=== PATIENT | male | born 1960 | race Caucasian/White ===

== ENCOUNTER 2024-03-03 11:24 | Emergency (ER) | payer MEDICARE, SELFPAY ==
--- NOTE | 2024-03-03 11:31 | ED.GENADULT ---
HPI - General Adult General Chief complaint: General Medical Stated complaint: gout flare up Time Seen by Provider: 03/03/24 11:57 Source: patient Mode of arrival: ambulatory Limitations: no limitations History of Present Illness ED Provider: Lg Warren PA-C HPI narrative: 64-year-old male history of gout, pacemaker COPD, seizure disorder, and hypertension presents to the ED left great toe gout exacerbation. Patient states history of gout. Patient denies any calf pain, leg swelling, chest pain, shortness of breath, any recent trauma. Patient has medication for gout at home, does not recall the name, but states no relief from pain. Patient requesting oral steroid with some with the pain stronger pain medication. Patient is on a blood thinner. Patient took about a 1000 mg Motrin this morning. Related Data Previous Rx's ?Medication ?Instructions ?Recorded colchicine 0.6 mg capsule 0.6 mg PO BID 3 days #6 caps 03/03/24 oxycodone 5 mg tablet 5 mg PO TID PRN pain 3 days #9 tabs 03/03/24 prednisone 20 mg tablet 40 mg (2 x 20 mg) PO DAILY 5 days 03/03/24 #10 tabs Allergies Allergy/AdvReac Type Severity Reaction Status Date / Time prochlorperazine Allergy Unknown Unknown Verified 03/03/24 11:33 [From Compazine] Review of Systems Review of Systems: Left great toe pain Yes all other systems are reviewed and are negative [facility] Social History Social History Advance Directives: No Advance Directives Information Provided: Yes Do you have a plan to hurt others: No Plan Physical Exam ED Vital Signs: Vital Signs - 24 hr 03/03/24 11:32 03/03/24 12:00 Temperature 97.9 F Pulse Rate 89 Respiratory Rate 18 18 Blood Pressure 118/75 Pulse Oximetry 98 Oxygen Delivery Method Room Air BMI result Body Mass Index 40.2 Const General: cooperative, healthy appearing, comfortable, no acute distress, well developed, alert, awake and Physically active Orientation/consciousness: patient oriented x3 HENMT Head: Yes normal to inspection, Yes No palpable skull fracture present, Yes normocephalic, Yes atraumatic and No abrasion Eyes General: appearance normal, both eyes and all related structures Neck Neck: Yes normal visual inspection, Yes full ROM, Yes no lymphadenopathy, Yes no meningeal signs, Yes trachea midline, Yes supple, No anterior neck swelling and No tender Chest Chest palpation & inspection: normal inspection of the chest and normal palpation of entire chest wall Resp Effort & Inspection: normal respiratory effort and able to speak in complete sentences Auscultation: clear to auscultation bilaterally Cardio Jugular venous distension: no JVD Heart sounds: S1 normal heart sound present and S2 normal heart sound present GI Inspection: Yes normal to inspection Palpation (GI): Soft to palpation, not firm, nontender, no guarding and not rigid General: No CVA tenderness and Yes no CVA tenderness Back/Spine/Pelvis Back: no CVA tenderness, No CVA tenderness and No back tenderness Skin General skin exam: no rashes or lesions noted, elasticity normal and turgor normal Neuro General: patient oriented x3, gait normal, tone normal, moves all extremities, Normal light touch and pain sensation, no meningeal signs, no focal motor deficits, CN's II-XI intact bilaterally and normal sensation to monofilament Extrem General: Yes normal to inspection, Yes full ROM and Yes capillary refill normal Ankle/foot/toe images: 1. Positive for tenderness on palpation. Slight erythema. Negative for any open wounds or ulcers. Negative for stiffness. Rest of extremity normal. Negative for leg swelling or calf pain. Negative for red streaks to indicate lymphangitis. Negative for bluish black discoloration to indicate arterial occlusion. Negative for bluish black discoloration to indicate fracture, or compartment syndrome. Motor/neuro/vascular exam intact Psych Appearance: grossly normal, well kempt and not disheveled Course Course Course Narrative: RME performed by Melly Apple PA-C. Patient is a 64 year old assigned male at presenting to the emergency department with a gout flare. Patient states he is having a gout flare in his left great toe and wants a shot of steroids. Detailed physical exam and review of systems are deferred to the electronic engineering technician. Patient placed back in the waiting room pending room availability. Medications Administered Discontinued Medications Generic Name Dose Route Start Last Admin Trade Name Rylan PRN Reason Stop Dose Admin Morphine Sulfate 4 mg 03/03/24 12:36 03/03/24 12:47 Morphine Sulfate 4 Mg/Ml Cartridge IM 03/03/24 12:37 4 mg ONCE ONE Administration Protocol Prednisone 60 mg 03/03/24 12:36 03/03/24 12:46 Prednisone 20 Mg Tablet PO 03/03/24 12:37 60 mg ONCE ONE Administration Medical Decision Making Medical Decision Making MDM Narrative: 64 yold female presents to ED for gout exacerbation. Patient denies any recent trauma. Due to patient being on blood thinner and taking 1000 mg of Motrin patient will not be given any since. Patient given morphine IM and prednisone steroid. Patient states feels relief. Not suspecting cellulitis, osteomyelitis, DVT, arterial occlusion, or compartment syndrome. 1:36pm: Patient is only on allopurinol as of 02/10/24. Patient will be discharged with Colcichine, oxycodone, and steroids. Can not discharge patient on NSAIDs due to being blood thinner. Patient explained worrisome signs informed to return to the ED immeidatle.. Differential Diagnosis Differential Diagnoses: The differential diagnosis associated with the presentation includes (Gout exacerbation, arthritis) Admission/Observation Consideration of admission/observation: Escalation of care including admission/observation considered Independent Historian Clinical information obtained from an independent historian. History obtained from or confirmed by: Other (patient) External Record Review External record reviewed: Other (prior visits. [facility]) Discharge Plan Discharge Clinical Impression: Gout attack Patient Disposition: Home, Self-Care Instructions: Low Purine Diet (ED), Gout (ED) Additional Instructions: Recommend follow-up with the primary care provider. Return to the ED immediately for worsening swelling, redness, bluish black discoloration, red streaks, calf pain, leg swelling, fever, chills, chest pain, shortness of breath, stiffness, or any other concerning symptoms. Prescriptions: New colchicine 0.6 mg capsule 0.6 mg PO BID 3 Days Qty: 6 0RF prednisone 20 mg tablet 40 mg PO DAILY 5 Days Qty: 10 0RF oxycodone 5 mg tablet 5 mg PO TID PRN (Reason: pain) 3 Days Qty: 9 0RF Rx Instructions: Partial Fill upon patient request. Interventions: ED Discharge Assessment Last Done: 03/03/24 14:10 Discharge Date/Time: 03/03/24 14:15 Print Language: [place]se
[2024-03-03 11:32] VITALS: BP 118/75; PULSE 89; RESP 18; TEMP 36.6; O2SAT 98; BMI 40.2
[2024-03-03 12:00] VITALS: RESP 18
[2024-03-03] MEDS: predniSONE 20 MG TABLET 60 MG PO (12:46)
[2024-03-03] MEDS: Morphine Sulfate 4 MG/ML CARTRIDGE IM (12:47)
[2024-03-03 14:10] VITALS: BP 111/61; PULSE 61; RESP 18; TEMP 36.4; O2SAT 95
== END 2024-03-03 14:15 | disposition home or self-care (01) ==
PROVIDERS: Emergency Provider Emergency Medicine
DX: M10.072 Idiopathic gout, left ankle and foot (principal); Z79.899 Other long term (current) drug therapy
CPT/HCPCS: 96372; 99283; 99284; J2270

== ENCOUNTER 2024-04-05 09:41 | Outpatient (REF) | payer MEDICARE, SELFPAY ==
[2024-04-05 10:12] LABS: MANUAL DIFF FLAG NO
[2024-04-05 10:39] LABS: Basophils Percent Auto 0.6 % (0-2); Eosinophils Absolute Auto 0.2 X10*3/uL (0.0-0.4); Eosinophils Percent Auto 3.3 % (0-4); Hematocrit 50.8 % (42.0-52.0); Hemoglobin 17.1 g/dl (14.0-18.0); Imm Gran Abs Auto 0.05 X10*3/uL (0.00-0.03); Imm Gran Pct Auto 0.7 % (0.0-0.4); Lymphocytes Absolute Auto 2.3 X10*3/uL (1.2-4.9); Lymphocytes Percent Auto 34.5 % (20-40); Mean Corpuscular HGB Conc 33.7 g/dl (31.0-36.0); Mean Corpuscular Hemoglobin 32.2 pg (27.0-33.0); Mean Corpuscular Volume 95.7 fL (80.0-98.0); Mean Platelet Volume 10.5 fL (9.4-12.4); Monocytes Absolute Auto 0.8 X10*3/uL (0.1-1.2); Monocytes Percent Auto 11.5 % (2-11); Neutrophils Absolute Auto 3.3 x10*3/uL (2.0-8.3); Neutrophils Percent Auto 49.4 % (45-73); Platelet Count 242 X10*3/uL (160-400); Red Blood Count 5.31 X10*6/uL (4.60-5.80); White Blood Count 6.7 X10*3/uL (4.8-10.8)
[2024-04-05 10:47] LABS: INTERNATIONAL NORM RATIO 3.4 (0.9-1.1); Prothrombin Time 41.4 SEC (11.1-13.3)
[2024-04-05 11:14] LABS: Estimated Average Glucose 143 mg/dL; Hemoglobin A1c % 6.6 % (<6.0)
[2024-04-05 12:10] LABS: Alanine Aminotransferase 45 U/L (0-40); Albumin Level 4.1 g/dL (3.5-5.0); Alkaline Phosphatase 75 U/L (39-117); Anion Gap 14 (12-20); Aspartate Amino Transferase 30 U/L (5-37); Bilirubin Total 0.8 mg/dL (0.0-1.0); Blood Urea Nitrogen 20 mg/dL (9-16); Calcium 9.8 mg/dL (8.4-10.2); Carbon Dioxide 29 mmol/L (22-29); Chloride 101 mmol/L (96-108); Cholesterol 193 mg/dL (<200); Estimated Glomerular Filt Rate > 60; Glucose Random 101 mg/dL (60-115); HDL Cholesterol 46 mg/dL (>40); LDL Cholesterol Calculated 103 mg/dL (<100); Potassium 4.1 mmol/L (3.3-5.1); Sodium 140 mmol/L (135-145); Total Protein 7.2 g/dL (6.5-8.0); Triglycerides 223 mg/dL (<150)
[2024-04-05 12:25] LABS: Prostate Specific Antigen Scr 0.65 ng/mL (<0.05-4.0)
[2024-04-05 12:26] LABS: Thyroid Stimulating Hormone 2.33 uIU/mL (0.32-4.0)
== END 2024-04-05 09:42 | disposition home or self-care (01) ==
LOC: HO.LAB 09:41
PROVIDERS: PCP Internal Medicine; Visit Provider Internal Medicine
DX: E66.01 Morbid (severe) obesity due to excess calories (principal); E78.00 Pure hypercholesterolemia, unspecified; F20.0 Paranoid schizophrenia; F31.9 Bipolar disorder, unspecified; G47.33 Obstructive sleep apnea (adult) (pediatric); I10 Essential (primary) hypertension; I48.91 Unspecified atrial fibrillation; J45.909 Unspecified asthma, uncomplicated; M10.9 Gout, unspecified; Z79.01 Long term (current) use of anticoagulants; Z95.0 Presence of cardiac pacemaker; Z12.5 Encounter for screening for malignant neoplasm of prostate; Z13.1 Encounter for screening for diabetes mellitus
CPT/HCPCS: 36415; 80053; 80061; 83036; 84153; 84443; 84550; 85025; 85610

== ENCOUNTER 2024-04-13 11:06 | Outpatient (REF) | payer MEDICARE, SELFPAY ==
[2024-04-13 11:33] LABS: MANUAL DIFF FLAG NO
[2024-04-13 11:57] LABS: Basophils Percent Auto 0.6 % (0-2); Eosinophils Absolute Auto 0.3 X10*3/uL (0.0-0.4); Eosinophils Percent Auto 4.8 % (0-4); Hematocrit 48.4 % (42.0-52.0); Hemoglobin 16.3 g/dl (14.0-18.0); Imm Gran Abs Auto 0.02 X10*3/uL (0.00-0.03); Imm Gran Pct Auto 0.4 % (0.0-0.4); Lymphocytes Absolute Auto 1.3 X10*3/uL (1.2-4.9); Lymphocytes Percent Auto 23.6 % (20-40); Mean Corpuscular HGB Conc 33.7 g/dl (31.0-36.0); Mean Corpuscular Hemoglobin 32.7 pg (27.0-33.0); Mean Platelet Volume 11.1 fL (9.4-12.4); Monocytes Percent Auto 18.4 % (2-11); Neutrophils Absolute Auto 2.8 x10*3/uL (2.0-8.3); Neutrophils Percent Auto 52.2 % (45-73); Platelet Count 187 X10*3/uL (160-400); Red Blood Count 4.99 X10*6/uL (4.60-5.80); Red Cell Distribution Width 14.1 % (11.0-16.0); White Blood Count 5.4 X10*3/uL (4.8-10.8)
[2024-04-13 12:03] LABS: Estimated Average Glucose 143 mg/dL; Hemoglobin A1c % 6.6 % (<6.0)
[2024-04-13 12:37] LABS: Creatinine Urine 86.93 mg/dL; Microalbum/Creatinine Ratio Ur 17.2 ug/mg cr (<30)
[2024-04-13 12:39] LABS: Alanine Aminotransferase 32 U/L (0-40); Albumin Level 4.1 g/dL (3.5-5.0); Alkaline Phosphatase 63 U/L (39-117); Anion Gap 11 (12-20); Aspartate Amino Transferase 28 U/L (5-37); Blood Urea Nitrogen 20 mg/dL (9-16); Calcium 9.3 mg/dL (8.4-10.2); Carbon Dioxide 24 mmol/L (22-29); Chloride 105 mmol/L (96-108); Cholesterol 167 mg/dL (<200); Estimated Glomerular Filt Rate > 60; Glucose Random 119 mg/dL (60-115); HDL Cholesterol 36 mg/dL (>40); LDL Cholesterol Calculated 104 mg/dL (<100); Potassium 4.3 mmol/L (3.3-5.1); Sodium 136 mmol/L (135-145); Total Protein 7.2 g/dL (6.5-8.0); Triglycerides 137 mg/dL (<150)
== END 2024-04-13 11:07 | disposition home or self-care (01) ==
LOC: HO.LAB 11:06
PROVIDERS: PCP Internal Medicine; Visit Provider Internal Medicine
DX: E78.00 Pure hypercholesterolemia, unspecified (principal); E11.9 Type 2 diabetes mellitus without complications; G47.33 Obstructive sleep apnea (adult) (pediatric); M10.9 Gout, unspecified; Z79.01 Long term (current) use of anticoagulants
CPT/HCPCS: 36415; 80053; 80061; 82043; 82570; 83036; 85025

== ENCOUNTER 2025-06-01 02:41 | Emergency (ER) | payer MEDICARE, SELFPAY ==
--- NOTE | 2025-06-01 | ECG_ITS ---
Test Reason : DIZZINESS Blood Pressure : */* mmHG Vent. Rate : 60 BPM Atrial Rate : 54 BPM P-R Int : * ms QRS Dur : 132 ms QT Int : 440 ms P-R-T Axes : * 180 30 degrees QTcB Int : 440 ms Ventricular-paced rhythm Biventricular pacemaker detected Abnormal ECG No previous ECGs available Referred By: Generic ED Physician Electronically Signed By: GAL GUERRIER
--- NOTE | ~2025-06-01 | CT_ITS ---
CLINICAL HISTORY: neck trauma CT cervical spine without contrast Comparison: None provided Findings: Vertebral alignment is within normal limits. Mild multilevel disc height loss with reactive endplate change and osteophyte formation. No acute fractures or dislocations. There appears to be a chronic type 1 odontoid fracture, well corticated. No acute findings on limited view of the intracranial contents. Soft tissues of the neck are normal. Lung apices are clear. IMPRESSION: No acute fracture identified. No alignment abnormalities. Multilevel degenerative change. There appears to be a chronic well corticated type 1 odontoid fracture. This document has been electronically signed by: Ana Marin MD on 06/01/2025 06:30:54
--- NOTE | ~2025-06-01 | CT_ITS ---
CLINICAL HISTORY: close head injury CT head without contrast Comparison: None provided Findings: No intra-axial mass, midline shift, hydrocephalus, or acute hemorrhage. No significant atrophy-like change or white matter disease. The visualized paranasal sinuses and mastoid air cells are normal. The orbits are within normal limits. There is no acute fracture. IMPRESSION: 1. No acute intracranial findings. This document has been electronically signed by: Ana Marin MD on 06/01/2025 06:37:24
--- NOTE | ~2025-06-01 | XR_ITS ---
CLINICAL HISTORY: trauma 2 view left knee Comparison: None provided Findings: Bones intact. No dislocations. Medial and patellofemoral compartment osteophyte formation. No significant joint space loss. No joint effusion. No radiopaque foreign body. IMPRESSION: 1. Mild tricompartment osteoarthropathy. No acute fracture or malalignment. No joint effusion. This document has been electronically signed by: Ana Marin MD on 06/01/2025 08:14:53
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
[2025-06-01 02:48] VITALS: BP 136/71; PULSE 76; RESP 18; TEMP 36.4; O2SAT 96; BMI 39.0
--- NOTE | 2025-06-01 03:12 | ED.GENADULT ---
[facility] - General Adult General Chief complaint: Fall Stated complaint: fell in shower Time Seen by Provider: 06/01/25 03:11 Source: patient Mode of arrival: ambulatory Limitations: no limitations History of Present Illness ED Provider: Dr. Jeffries [facility] narrative: 65-year-old male history of being anticoagulated on Coumadin, gout, seizures presented hospital today for evaluation of a mechanical fall. Patient stated he slipped and fell in the shower. He injured his left knee. He is also complaining of right hip pain. Patient is complaining of head pain and neck pain. Denies any pain in his chest. Denies any pain in abdomen. Patient has been taking his Coumadin Related Data Previous Rx's ?Medication ?Instructions ?Recorded colchicine 0.6 mg capsule 0.6 mg PO BID 3 days #6 caps 03/03/24 oxycodone 5 mg tablet 5 mg PO TID PRN pain 3 days #9 tabs 03/03/24 prednisone 20 mg tablet 40 mg (2 x 20 mg) PO DAILY 5 days 03/03/24 #10 tabs oxycodone 5 mg tablet 5 mg PO Q4H PRN pain #14 tabs 06/01/25 Allergies Allergy/AdvReac Type Severity Reaction Status Date / Time prochlorperazine (From Allergy Unknown Unknown Verified 06/01/25 02:49 Compazine) Review of Systems Review of Systems: Pertinent review of systems as mentioned in HPI. All other system otherwise negative. [facility] Past Medical History [facility] Narrative: Medical history as mentioned in HPI Social History Social History Smoked in Last 30 Days: No Use of substances other than those prescribed or required for medical reasons: No Advance Directives: No Physical Exam ED Exam Exam: General: Pleasant, no distress, interacting appropriately Head: Normacephalic ENT: oral mucosa moist, neck supple, no tracheal deviation, C-spine tenderness on palpation, small abrasion on his frontal forehead Cardiovascular: regular rate, regular rhythm, no murmurs, rubbing, gallops, no chest wall tenderness Respiratory: CTAB, no wheeze, rales, rhonchi Gastrointestinal: Soft, non distended, non tender, non guarding Extremities: Patient has suprapatellar hematoma identified on exam with the abrasion, patient's right hip tenderness on exam. No sign of ecchymosis on flank Neurological: Awake and alert, no facial droop noted Skin: Warm and dry Psychiatric: Appropriate mood and thoughts Vital Signs: Vital Signs - 24 hr 06/01/25 02:48 06/01/25 04:30 06/01/25 06:00 Temperature 97.5 F 98.7 F 97.8 F Pulse Rate 76 62 61 Respiratory Rate 18 Blood Pressure 136/71 118/74 117/75 Pulse Oximetry 96 97 95 Oxygen Delivery Method Room Air Room Air Room Air BMI result Body Mass Index 39.0 Course Course Course Narrative: signed out to me he has glory wrap on L knee his xrays are negative and CT scans are negative instructed to wear glory wrap for 5 days, given cane, follow up with PCP Wednesday or Wednesday short course pain control Camila De La Fuente, DO 06/01/25 0833 Medications Administered Discontinued Medications Generic Name Dose Route Start Last Admin Trade Name Freq PRN Reason Stop Dose Admin Oxycodone HCl 5 mg 06/01/25 04:26 06/01/25 04:32 Oxycodone Hcl Immed Release 5 Mg Tablet PO 06/01/25 04:27 5 mg ONCE ONE Administration Oxycodone HCl 10 mg 06/01/25 07:35 06/01/25 07:41 Oxycodone Hcl Immed Release 5 Mg Tablet PO 06/01/25 07:36 10 mg ONCE ONE Administration Medical Decision Making Medical Decision Making [facility] Narrative: 65-year-old male on Coumadin presented hospital today for evaluation of a mechanical fall. Lab work and PT INR will be obtained for the patient at this time. CT head CT C-spine will be obtained. We will obtain x-ray patient's left. CT head and CT C-spine is negative. INR is elevated at 2.0. Chemistries unremarkable. Patient's CBC is unremarkable. Pending x-ray at this time. Patient will be signed out to oncoming provider. A dose of oxycodone will be given for his pain medication. Differential Diagnosis Differential Diagnoses: The differential diagnosis associated with the presentation includes Left patellar fracture, left suprapatellar hematoma, intracranial bleed, C-spine fracture Lab Data [facility] Lab Attestation statement: I reviewed the patient's lab results. 06/01/25 03:08 06/01/25 03:08 Labs: Lab Results 06/01/25 Range/Units 03:08 WBC 9.6 (4.8-10.8) X10*3/uL RBC 4.80 (4.60-5.80) X10*6/uL Hgb 16.0 (14.0-18.0) g/dl Hct 45.5 (42.0-52.0) % MCV 94.8 (80.0-98.0) fL MCH 33.3 H (27.0-33.0) pg MCHC 35.2 (31.0-36.0) g/dl RDW 13.2 (11.0-16.0) % Plt Count 244 D (160-400) X10*3/uL MPV 10.6 (9.4-12.4) fL Absolute Nucleated RBC 0.000 (0.0-0.012) X10*3/uL Nucleated RBC % (auto) 0.0 (0.0-0.2) /100WBC PT 23.0 H (10.9-12.4) SEC INR 2.0 H (0.9-1.1) Sodium 141 (135-145) mmol/L Potassium 4.1 (3.3-5.1) mmol/L Chloride 107 (96-108) mmol/L Carbon Dioxide 27 (22-29) mmol/L Anion Gap 11 L (12-20) BUN 20 H (9-16) mg/dL Creatinine 1.07 (0.5-1.4) mg/dL Estim Creat Clear Calc 86.8 Estimated GFR > 60 Random Glucose 105 (60-115) mg/dL Calcium 9.4 (8.4-10.2) mg/dL Magnesium 1.9 (1.6-2.6) mg/dL Total Bilirubin 0.6 (0.0-1.0) mg/dL AST 33 (5-37) U/L ALT 31 (0-40) U/L Alkaline Phosphatase 81 (39-117) U/L Troponin I High Sens 4.0 (<3.5-35.0) ng/L Total Protein 7.7 (6.5-8.0) g/dL Albumin 4.5 (3.5-5.0) g/dL Independent Interpretation I performed an independent interpretation of an: CT Scan Radiology Impression Discussion of test interpretation with radiology: I have reviewed the radiologist's reading. Discharge Plan Discharge Clinical Impression: Hematoma Fall Qualifiers: Encounter type: initial encounter Qualified Code(s): W19.XXXA - Unspecified fall, initial encounter Closed head injury Qualifiers: Encounter type: initial encounter Qualified Code(s): S09.90XA - Unspecified injury of head, initial encounter Patient Disposition: Home, Self-Care Instructions: Head Injury (ED), Knee Pain (ED), Hematoma (ED) Additional Instructions: your CT scans show no injury to CT head/cspine negative xrays no broken bones glory wrap to be worn for 5 days can take off to shower - do not wrap it so tight your foot is cold or tingling keep elevated when not walking use cane your doctor needs to look at this on Wednesday or Wednesday return for any worsening symptoms or concerns Prescriptions: New oxycodone 5 mg tablet 5 mg PO Q4H PRN (Reason: pain) Qty: 14 0RF Rx Instructions: Partial Fill upon patient request. No Action colchicine 0.6 mg capsule 0.6 mg PO BID 3 Days Qty: 6 0RF prednisone 20 mg tablet 40 mg PO DAILY 5 Days Qty: 10 0RF oxycodone 5 mg tablet 5 mg PO TID PRN (Reason: pain) 3 Days Qty: 9 0RF Rx Instructions: Partial Fill upon patient request. Print Language: Indonesian
[2025-06-01 03:15] LABS: Hematocrit 45.5 % (42.0-52.0); Hemoglobin 16.0 g/dl (14.0-18.0); Mean Corpuscular HGB Conc 35.2 g/dl (31.0-36.0); Mean Corpuscular Hemoglobin 33.3 pg (27.0-33.0); Mean Corpuscular Volume 94.8 fL (80.0-98.0); NRBC Abs Auto 0.000 X10*3/uL (0.0-0.012); NRBC Pct Auto 0.0 /100WBC (0.0-0.2); Platelet Count 244 X10*3/uL (160-400); Red Blood Count 4.80 X10*6/uL (4.60-5.80); White Blood Count 9.6 X10*3/uL (4.8-10.8)
[2025-06-01 03:23] LABS: INTERNATIONAL NORM RATIO 2.0 (0.9-1.1); Prothrombin Time 23.0 SEC (10.9-12.4)
[2025-06-01 03:34] LABS: Alanine Aminotransferase 31 U/L (0-40); Albumin Level 4.5 g/dL (3.5-5.0); Alkaline Phosphatase 81 U/L (39-117); Anion Gap 11 (12-20); Aspartate Amino Transferase 33 U/L (5-37); Blood Urea Nitrogen 20 mg/dL (9-16); Calcium 9.4 mg/dL (8.4-10.2); Carbon Dioxide 27 mmol/L (22-29); Chloride 107 mmol/L (96-108); Creatinine Clr Calc Pharmacy 86.8; Estimated Glomerular Filt Rate > 60; Magnesium 1.9 mg/dL (1.6-2.6); Potassium 4.1 mmol/L (3.3-5.1); Sodium 141 mmol/L (135-145); Total Protein 7.7 g/dL (6.5-8.0)
[2025-06-01 03:41] LABS: Troponin-I High Sensitivity 4.0 ng/L (<3.5-35.0)
[2025-06-01 04:30] VITALS: BP 118/74; PULSE 62; TEMP 37.1; O2SAT 97
[2025-06-01] MEDS: oxyCODONE HCl Immed Release 5 MG TABLET PO (04:32)
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
[2025-06-01 06:00] VITALS: BP 117/75; PULSE 61; TEMP 36.6; O2SAT 95
--- NOTE | 2025-06-01 06:09 | PC.NURSE ---
reviewed discharge instructions with pt. pt verbalized understanding, no sign of distress upon discharge.
--- NOTE | 2025-06-01 06:16 | PC.NURSE ---
pt awaiting ct and xray results, pt has abrasion in left knee, cleaned and dressed.
--- NOTE | 2025-06-01 06:56 | PC.NURSE ---
xray ordered and not completed at this time, [facility] practitioner assistant reported they will have someone do it this morning by morning staff, decide to work on CT first. Provider Dr. benson aware.
[2025-06-01] MEDS: oxyCODONE HCl Immed Release 5 MG TABLET 10 MG PO (07:41)
[2025-06-01 10:04] VITALS: BP 117/75; PULSE 61; RESP 16; TEMP 36.6; O2SAT 95
== END 2025-06-01 09:15 | disposition home or self-care (01) ==
PROVIDERS: Emergency Provider Student in an Organized Health Care Education/Training Program
DX: S09.90XA Unspecified injury of head, initial encounter (principal); R51.9 Headache, unspecified; M54.2 Cervicalgia; M25.551 Pain in right hip; R10.2 Pelvic and perineal pain; R94.31 Abnormal electrocardiogram [ECG] [EKG]; Z51.81 Encounter for therapeutic drug level monitoring; Z79.899 Other long term (current) drug therapy
CPT/HCPCS: 36415; 70450; 72125; 73502; 73560; 80053; 83735; 84484; 85027; 85610; 93005; 99284; 99285

== ENCOUNTER → 2025-06-01 03:03 | Outpatient (BNV) | payer MEDICARE, MEDICAID, SELFPAY | PROVIDERS: Emergency Provider Student in an Organized Health Care Education/Training Program; Visit Provider Internal Medicine | DX: R94.31 Abnormal electrocardiogram [ECG] [EKG] (principal); R42 Dizziness and giddiness; Z95.0 Presence of cardiac pacemaker | CPT/HCPCS: 93010 ==

== ENCOUNTER → 2025-06-01 04:24 | Outpatient (BNV) | payer MEDICARE, MEDICAID, SELFPAY | PROVIDERS: Emergency Provider Student in an Organized Health Care Education/Training Program; Visit Provider Radiology Diagnostic Radiology | DX: S19.9XXA Unspecified injury of neck, initial encounter (principal); M50.30 Other cervical disc degeneration, unspecified cervical region; S09.90XA Unspecified injury of head, initial encounter; M25.551 Pain in right hip; S80.912A Unspecified superficial injury of left knee, initial encounter | CPT/HCPCS: 70450; 72125; 73502; 73560 ==